=== PATIENT | male | born 1955 | race Caucasian/White ===

== ENCOUNTER 2023-07-14 16:47 | Inpatient (IN) | payer OTHER, SELFPAY ==
[2023-07-14] VITALS (27 sets, daily range): BP systolic 86–132; BP diastolic 50–108; PULSE 78; BMI 29.8
--- NOTE | 2023-07-14 15:41 | ED.GENMED ---
History of Present Illness
General
Chief Complaint: Chest Pain
Source: patient
Exam Limitations: none
Time Seen by Provider: 07/14/23 15:30
Nursing documentation reviewed up to this point in time: agreed with
Travel History
Have you had any contact with someone who has COVID-19?: No
Do you have any symptoms of coronavirus? Fever > 100 degrees, chills, cough, shortness of breath, sore throat, loss of taste or smell, muscle aches, or headache?: No
History of Present Illness
History of Present Illness:
Patient with history of coronary disease, presents to ED secondary to worsening intermittent chest pain over the past 1 month. Patient was evaluated by his psychiatric aide yesterday and an outpatient cardiac catheterization has been scheduled for July
. Today, chest pain was more frequent, although improved when taking sublingual nitroglycerin. Patient reports having taken for tablets today. Chest pain described as pressure, right-sided, nonradiating, without any alleviating or exacerbating
factors. Denies trauma. Denies fever or chills. Denies recent travel or surgery. Denies leg pain or swelling. Denies back pain. Patient reports having had cardiac catheterization 6 years ago which revealed 40% blockage in his LAD.
Review of Systems
Review of Systems
Allergies reviewed?: Yes
All Other Systems: ROS reviewed and negative except as documented in HPI and ROS
Constitutional: Reports no symptoms
EENT: Reports no symptoms
Respiratory: Reports no symptoms
Cardiac: Reports chest pain
ABD/GI: Reports no symptoms
: Reports no symptoms
Musculoskeletal: Reports no symptoms
Skin: Reports no symptoms
Neurological: Reports no symptoms
Phy Exam
Physical Exam
Physical Exam:
Physical Exam
General: mild distress, not acutely ill. afebrile
Head: nc/at. eomi
Neck: supple. no meningeal signs.
Heart: s1/s2 regular rate and rhythm, no murmur. equal radial pulses.
Lungs: no acute respiratory distress. clear bilaterally
Abdomen: normal bowel sounds. not tender.
Neuro: alert and oriented. no focal neurological deficits
Skin: no rash
Psychiatric: well kept. interactive and cooperative
Extremities: no edema. no calf tenderness.
Scores
Heart Score for Chest Pain Patients
STEMI patient?: No
History: Highly Suspicious
ECG: Significant ST-Depression
Age: >/= 65 years
Risk Factors: >/= 3 Risk Factors or History of CAD
Troponin: >1 - <3 x Normal Limit
Heart Score for Chest Pain Patients: 9
Heart Score Risk: 72.7 % MACE over next 6 weeks
Course
Orders/Labs/Results
Orders:
Orders
07/14/23
Electrocardiogram (*1) Stat
Reason for Study: Chest Pain
Comment: DONE NO ORDER ENTERED
07/14/23 Lunch
NPO
Allow oral meds: Yes
Allow clear liquids: No
07/14/23 15:10
EKG [Electrocardiogram (*1)] Urgent
Reason for Study: Chest Pain
EKG- Treatment ONCE
07/14/23 15:32
CR Chest Portable - 1 View Urgent
Comment:
Reason For Exam: chest pain
Reason Study Needs to be Portable: Patient Unstable
07/14/23 15:36
Nitroglycerin 100 mg/250 ml [Nitroglycerin Premix] 100 mg in 250 ml .ROUTE .STK-MED
Nitroglycerin Sublingual [Nitrostat (Sublingual)] 0.4 mg .ROUTE .STK-MED ONE
07/14/23 15:41
Complete Blood Count/No Diff Urgent
Comprehensive Metabolic Panel Urgent
Magnesium Urgent
Troponin I Urgent
07/14/23 15:43
Nitroglycerin Sublingual [Nitrostat (Sublingual)] 0.4 mg SL NOW STA
07/14/23 15:45
Nitroglycerin 100 mg/250 ml [Nitroglycerin Premix] 100 mg in 250 ml IV PER PROTOCOL
Initial dose in mcg/min, then titrate:: 25
Titrate to keep:: Chest Pain Free
Titrate by mcg/min:: 5 mcg/min, may increase by 10 mcg/min if dose > 20 mcg/min
Frequency of titrations (minutes):: every 3-5 minutes
Maximum dose in mcg/min:: 200
Begin to taper infusion when:: Remained at goal for 2hrs
Taper by mcg/min:: 5 mcg/min
Frequency of taper (minutes) if patient maintains goal:: 30
Taper to off?: Yes
If infusion off & no longer maintaining goal:: Contact Provider
07/14/23 15:48
Aspirin Chewable [Low Strength Aspirin] 324 mg .ROUTE .STK-MED ONE
Heparin 5,000 units .ROUTE .STK-MED ONE
Heparin 20340 Units/250 ml 25,000 units in 250 ml .ROUTE .STK-MED
07/14/23 15:50
Aspirin Chewable [Low Strength Aspirin] 324 mg PO NOW STA
07/14/23 15:52
Heparin 4,000 units IV NOW STA
07/14/23 15:55
PT/INR [Prothrombin Time] Urgent
07/14/23 16:00
Admit/Transfer Patient As Directed
Co-Sign Provider:
Level of Care: Inpatient admission
Assign to:: IVU
Physician / Group: Dr. Coronel
Diagnosis: Acute coronary syndrome
Reason for Hospitalization: Acute coronary syndrome
Expected length of stay greater than two midnights?: Yes
ELOS- Estimated Length of Stay in days: 3
I certify the patient meets the requirements for IP care: Yes
ECG [Electrocardiogram (*1)] Urgent
Reason for Study: Chest Pain
Comment: POSTERIOR ECG
07/14/23 16:07
Fentanyl Citrate/Pf [Sublimaze] 100 mcg .ROUTE .STK-MED ONE
Heparin 10,000 units .ROUTE .STK-MED ONE
Midazolam HCl [Versed] 2 mg .ROUTE .STK-MED ONE
07/14/23 16:16
EKG- Treatment ONCE
07/14/23 16:28
Furosemide [Lasix] 40 mg .ROUTE .STK-MED ONE
07/14/23 16:47
Transfer Patient As Directed
Transfer to: CVICU
Higginbotham Catheter [Catheter- Indwelling] As Directed
Reason for insertion: I&O's Critical Care
Assess insertion reason daily.Remove if no longer applicable: Yes
07/14/23 17:10
Dextrose 50%-Water [Dextrose 50% Syringe] 12.5 grams IV [id number] PRN
Glucagon [GlucaGen] 1 mg IM PRN PRN
Insulin Aspart Corrective Low [Novolog Flexpen-Low Resistance] See Protocol SC AC
Nitroglycerin Sublingual [Nitrostat (Sublingual)] 0.4 mg SL [id number] PRN
07/14/23 17:10
Echo 2D MMode Color/Doppler Routine
Reason for Study: chest pain
Case Management Consult ONCE
Case Management Consult: Discharge Planning
Bedside Glucose Monitoring As Directed
Frequency: AC&HS
Additional Instructions:: Change to q6h if pt on TPN, tube feeding or not eating
INT (Intravenous Needle Therapy) As Directed
Comment: maintain peripheral IV access
Intake/ Output As Directed
Frequency: Per unit guidelines
Vital Signs As Directed
Frequency: q4h
Weight As Directed
Frequency: Once
07/14/23 17:20
Glycohemoglobin (HgbA1c) Routine
Troponin I Q6H
Comment: at admit & Q3H for 3 total including ED draws, obtain ECG with each level
07/14/23 20:00
Ranolazine Extended Release [Ranexa Extended Release] 1,000 mg PO BID
07/14/23 22:00
Electrocardiogram (*1) Q6H
Reason for Study: Chest Pain
Comment: at admission and Q3H for total of 3, to be done with each troponin
07/15/23 04:00
Electrocardiogram (*1) Q6H
Reason for Study: Chest Pain
Comment: at admission and Q3H for total of 3, to be done with each troponin
Troponin I Q6H
Comment: at admit & Q3H for 3 total including ED draws, obtain ECG with each level
07/15/23 06:00
Cardiovascular Evaluation IN AM
Complete Blood Count/No Diff IN AM
Comprehensive Metabolic Panel IN AM
07/15/23 08:00
Amlodipine [Norvasc] 10 mg PO DAILY
Aspirin Chewable [Low Strength Aspirin] 81 mg PO DAILY
Lisinopril [Zestril] 20 mg PO DAILY
Tamsulosin [Flomax] 0.4 mg PO DAILY
Abnormal Lab Results
07/14/23
15:41
WBC 11.6 H 10^3/uL
(4.8-10.8)
RBC 4.56 L 10^6/uL
(4.70-6.10)
Hct 38.6 L %
(39.0-52.0)
Sodium 134 L mmol/L
(135-145)
Glucose 236 H mg/dl
(70-99)
Troponin I 0.565 H* ng/ml
07/14/23 15:41
07/14/23 15:41
Vital Signs
Initial and Last Documented VS:
Initial Vital Signs
Temp Pulse Resp BP Pulse Ox
98.0 F 85 18 90/61 98
07/14/23 15:23 07/14/23 15:23 07/14/23 15:23 07/14/23 15:23 07/14/23 15:23
Last Documented Vital Signs
Temp Pulse Resp BP Pulse Ox
98.2 F 79 17 109/50 98
07/14/23 20:00 07/14/23 20:00 07/14/23 20:00 07/14/23 20:00 07/14/23 20:00
MDM/Problems Addressed
MDM/Problems Addressed:
History and exam consistent with unstable angina, along with concerning ST depression inferolaterally.
Outpatient cardiology office records obtained via fax. Scheduled for an outpatient cardiac catheterization in July.
Pt given NTG SL, with improvement in symptoms. Will start nitroglycern gtt.
Pt evaluated in ED by (cardiology) - will proceed to cardiac cath. Agrees with plan to administer aspirin/heparin bolus.
Critical care statement: A total of 30 minutes of critical care time was provided for this patient. This includes management of unstable vital signs, evaluation of the patient at bedside, reviewing the patient's pertinent medical records, discussion
with consultants, review of old EKGs and review of pertinent medical records. This time with separate from time utilized to perform the aforementioned documented procedures
*EKG
Interpreted by ED Provider?: Yes
EKG Intrepretation Date: 07/14/23
Heart Rate: 83
Rate: normal
[place]: normal axis
Ischemia: ST depression
*Critical Care Note
Total Time (30-74mins, 75-104mins- exclusive of procedures): 30 min
ED Attending Note
-
Portions of this chart may have been created with voice recognition software.� Occasional wrong word or��sound alike� substitutions may have occurred due to the inherent limitations of voice recognition software.
Discharge Plan
Departure
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
Date of Disposition: 07/14/23
Time of Disposition: 16:00
Admit to: laboratory apparatus glass blower
Presentation/result/management discussed w/ accepting MD/DO:
Discharge Problem:
Chest pain, Abnormal ECG
Interventions
Interventions:
*Nursing Disposition Last Done: 07/14/23 16:25
Discharge Date and Time
Discharge Date/Time: 07/14/23 16:26
[2023-07-14] MEDS: NITROSTAT (SUBLINGUAL) 0.400000000000000022 MG SL (15:43)
[2023-07-14] MEDS: NITROGLYCERIN PREMIX 250 IV (15:46)
[2023-07-14] MEDS: LOW STRENGTH ASPIRIN 324 MG PO (15:50)
[2023-07-14] MEDS: HEPARIN 4000 UNITS IV (15:52)
--- NOTE | 2023-07-14 16:00 | HPS.HSE ---
Family Physician
-
Family Physician:
Dr. Matos
Primary project coordinator rn Dr. Davis
Chief Complaint
-
Chest pain
History of Present Illness
67-year-old gentleman with a past medical history of diffuse CAD without any prior stenting or bypass, hypertension, hyperlipidemia and diabetes on semaglutide who presents for evaluation of chest pain. Patient reports, over the last month or 2, he
has had increasing need for nitroglycerin. He reports that at first it was with exertion but in the last several days it has been occurred with less and less exertion and today occurred at rest while at work. It is mid substernal to right-sided
pressure it does not radiate. It is relieved with nitro. He chronically takes Ranexa, amlodipine and lisinopril and saw his primary project coordinator rn yesterday who increased his metoprolol to 125 mg daily and recommended cardiac catheterization.
Currently, he is still at a 2 out of 3 out of 10 pain. He has received 5 nitroglycerin 3 on his own accord. He is on a nitro drip at 25 mics per minute. EKG shows sinus rhythm with a rightward axis, diffuse ST depressions 1 to 2 mm [address] AV are ST
elevation of 2 mm.
Medical History
Past Medical History
Past Medical History: Reports CAD (Question nonobstructive but treated with Ranexa and as needed nitroglycerin), HTN, Hypercholesterolemia and NIDDM
Past Surgical History: Reports Other (He just had a prostate biopsy a week and a half ago)
Social History
Tobacco: Former Smoker (Greater than 10 years ago)
Alcohol: Occasional (Very occasionally like less than a couple of times a year.)
Family History
Family History: CAD (No premature CAD)
Allergies / Home Medications
Allergies reflects when Allergies were last updated in [employer].
Home Medications with original date entered in [employer]
Allergy/Medication List:
Penicillin hives codeine nausea and vomiting
Review of Systems
-
A 12 point ROS was completed and negative except as noted: Yes
Physical Exam
Vital Signs
Vital Signs
Temp Pulse Resp BP Pulse Ox
98.0 F 85 18 90/61 98
07/14/23 15:23 07/14/23 15:23 07/14/23 15:23 07/14/23 15:23 07/14/23 15:23
Physical Exam
General: Well Developed, Well Nourished and No Apparent Distress
HEENT: NormoCephalic and Atraumatic
Respiratory: Clear, Wheezes (none), Rales (none) and Rhonchi (none)
Cardiac: S1/S2 and Regular Rhythm
GI: Soft, Non Tender and Non Distended
Musculoskeletal: No Clubbing, No Cyanosis and No Edema
Neuro: AO x 3
Laboratory Results
-
Still pending except for CBC white count one 11.6, platelets 222 hemoglobin 13.7
Data Reviewed
-
Medical Tests (Nuc Med, Echo, EKG etc): Other (EKG as above, outpatient EKG yesterday showed normal sinus rhythm with mild ST changes anterolaterally, suspicious for ischemia.)
Impression/Plan
-
IMPRESSION:
67-year-old with diffuse CAD, hypertension, hyperlipidemia, diabetes and morbid obesity presents for evaluation of chest pain consistent with ACS.
Will proceed to cardiac catheterization urgently, received 325 of aspirin at the bedside, received 4000 units of heparin.
I spoke to Dr. Kasper gravity flow irrigator who will proceed to cardiac catheterization now.
Will continue OMT post catheterization as indicated.
-
For his diabetes, will check sliding scales and provide coverage, will consult medicine tomorrow.
-
BPH, continue alpha-joe
This is a high risk situation requiring immediate transfer to cardiac catheterization laboratory.
[2023-07-14 16:02] LABS: Hematocrit 38.6 % (39.0-52.0); Hemoglobin 13.7 g/dL (13.0-18.0); Mean Corp Hgb Conc. 35.5 g/dL (33.0-37.0); Mean Corpuscular Volume 84.6 fL (80.0-94.0); Mean Platelet Volume 8.9 fL (7.4-10.4); Platelet Count 222 10^3/uL (130-400); Red Blood Cell Count 4.56 10^6/uL (4.70-6.10); Red Cell Dist. Width 12.7 % (11.5-14.5); White Blood Cell Count 11.6 10^3/uL (4.8-10.8)
--- NOTE | 2023-07-14 16:05 | ITS.CL.CATH ---
Brick Extruder Operator - Catheterization
Cardiac Catheterization
Procedure Report:
CARDIAC CATHETERIZATION REPORT
Date of Procedure: 07/14/2023
Referring: Agatha Coronel MD
Indication: ACS
HEMODYNAMIC DATA
AO: 98/64
LV: 110/40
There is a suspected gradient across aortic valve approximately 10-15 mmHg. This will need to be verified by echo
LEFT VENTRICULOGRAPHY: Left ventricular wall motion is reasonably intact with visually estimated EF 50-55%
CORONARY ANGIOGRAPHY
Dominance: Right
Left Main: 20% mid stenosis
LAD: The LAD has mild proximal luminal disease and then severe diffuse multisegment disease involving the entire mid and distal LAD. There are focal areas of greater than 90% stenosis throughout the mid and distal LAD. The first diagonal branch is
subtotally occluded at its origin. This appears to be a very small diffusely diseased vessel. The larger second diagonal branch has 80% ostial, 80% proximal, and 80% mid stenoses.
Circumflex: The circumflex is occluded just distal to its origin. This appears to be a chronic total occlusion. There is faint bridging collateral filling of a diffusely diseased medium caliber OM1. I do not see collateral filling of more distal
obtuse marginal branches. Notably in 2017 his angiogram showed an occluded small OM 2 and a 95% stenosis in a small OM 3
RCA: Dominant vessel with severe calcification. There is 50% ostial/proximal stenosis, 50% mid stenosis, severely calcific 80% distal RCA stenosis proximal to the takeoff of the RPDA. The RPDA is proximally occluded (new since 2017). The RCA
terminates with a moderate-sized right posterolateral branch which has mild luminal disease.
Closure Device: None-the procedure was performed via the right radial artery.
Radiation (mGy): 628
DAP (cm2.Gy): 64.5
Fluoroscopy time: 5.1 minutes
CONCLUSIONS
1: ACS presentation with diffuse lateral ischemic changes on ECG
2: Acute pulmonary edema. LVEDP is 40 and the patient required 100% O2 via nonrebreather facemask to get O2 saturation greater than 92%. Furosemide 40 mg was given early during the catheterization procedure once the LVEDP was measured
3. Reasonably normal left ventricular wall motion with estimated LVEF 50-55%
4. Possible aortic stenosis with pullback gradient of 10-15 mmHg can you
5. Critical triple-vessel CAD as described-I do not see any appropriate target for interventional therapy. We will ask CT surgery to review the angiogram although I do not see acceptable bypass targets outside of the distal right posterolateral
branch and the distal aspect of second diagonal branch. Of note, he was seen by Dr. Grey of CT surgery at [facility] in 2017 and felt at that time not to be an acceptable candidate for CABG
6. At the conclusion of the catheterization procedure, he will be transferred to the CVICU. IC nitroglycerin was started at 60 mcg/min. Heparin will be resumed after the R band is off. We will continue metoprolol and use 25 mg p.o. every 6 hours
at this time. Furosemide 40 mg IV twice daily will be ordered. We will obtain serial cardiac isoenzymes and EKGs. His prognosis at present is guarded to poor and coronary revascularization is likely not an option for this man. I opted not to
place an IABP as he had blood pressure 110/80 with O2 sat 95% on 100% nonrebreather facemask and I felt having him upright would be greatly important to treat his pulmonary edema. With no clear option for surgical intervention and no option for
percutaneous intervention, it is unclear that a balloon pump would be of any help at this time.
Copy to: Nikos Maya MD
Evert Kasper MD, [facility], [facility]
[2023-07-14 16:11] LABS: INR 1.08; PT 13.9 Sec (11.4-14.6)
[2023-07-14 16:17] LABS: ALT (SGPT) 25 U/L (0-50); AST (SGOT) 26 U/L (17-59); Albumin 4.5 g/dl (3.5-5.0); Alkaline Phosphatase 44 U/L (38-126); Blood Urea Nitrogen 18 mg/dl (9-20); Carbon Dioxide 22 mmol/L (22-30); Chloride 99 mmol/L (98-107); Glucose 236 mg/dl (70-99); Magnesium 1.9 mg/dl (1.6-2.3); Potassium 5.1 mmol/L (3.5-5.1); Sodium 134 mmol/L (135-145); Total Bilirubin 0.8 mg/dl (0.2-1.3); Total Protein 7.3 g/dl (6.3-8.2); eGFR > 60.00
[2023-07-14 16:33] LABS: Troponin I 0.565 ng/ml
[2023-07-14 17:27] LABS: Hematocrit 36.4 % (39.0-52.0); Hemoglobin 12.5 g/dL (13.0-18.0); Mean Corp Hgb Conc. 34.3 g/dL (33.0-37.0); Mean Corpuscular Hgb 29.6 pg (27.0-31.0); Mean Corpuscular Volume 86.1 fL (80.0-94.0); Mean Platelet Volume 9.2 fL (7.4-10.4); Platelet Count 194 10^3/uL (130-400); Red Blood Cell Count 4.23 10^6/uL (4.70-6.10); Red Cell Dist. Width 12.5 % (11.5-14.5); White Blood Cell Count 10.9 10^3/uL (4.8-10.8)
[2023-07-14 17:40] LABS: APTT 130.5 Sec (23.4-35.0)
--- NOTE | 2023-07-14 17:48 | CONSULT.CT ---
Consultation
-
Date/Time Consultation Requested: 07/13
Date/Time Consultation Performed: 07/13
Requesting Provider: Dr Kasper
Performing Provider: Daphne GALLAGHER for Dr Carrillo
Reason for Consultation: CABG evaluation
Patient History
Physicians
Family Physician: Dr. Jabier Matos
Outpatient Awning Installer: Dr. Nikos Maya
Inpatient Awning Installer: Dr. Kasper
History of Present Illness
67-year-old [id number] male with a significant past medical history of hypertension, hyperlipidemia, diabetes and diffuse CAD (recommended medical therapy in 2017), was admitted 07/13 via the emergency room with increasing
frequency of midsternal chest pressure. Patient took Nitroglycerin without relief. Initial Troponin was 0.5. Patient was evaluated by Dr. Nikos Maya (primary geospatial specialist) yesterday who increased Toprol XL to 125 mg daily and recommended
elective cardiac catheterization. Cath reported triple vessel coronary disease. Azar thomas
Cardiac Catheterization (R radial by Dr. Kasper 07/13):
LV gram: LVEF 50-55%
Left Main: 20% mid stenosis
LAD: The LAD has mild proximal luminal disease and then severe diffuse multisegment disease involving the entire mid and distal LAD. There are focal areas of greater than 90% stenosis throughout the mid and distal LAD. The first diagonal branch is
subtotally occluded at its origin. This appears to be a very small diffusely diseased vessel. The larger second diagonal branch has 80% ostial, 80% proximal, and 80% mid stenoses.
Circumflex: The circumflex is occluded just distal to its origin. This appears to be a chronic total occlusion. There is faint bridging collateral filling of a diffusely diseased medium caliber OM1. I do not see collateral filling of more distal
obtuse marginal branches. Notably in 2017 his angiogram showed an occluded small OM 2 and a 95% stenosis in a small OM 3
RCA: Dominant vessel with severe calcification. There is 50% ostial/proximal stenosis, 50% mid stenosis, severely calcific 80% distal RCA stenosis proximal to the takeoff of the RPDA. The RPDA is proximally occluded (new since 2017). The RCA
terminates with a moderate-sized right posterolateral branch which has mild luminal disease.
Past Medical History
Past Medical History: BPH, CAD (known CAD from 2017), Cancer (prostate w/surveillance and biopsy 2 weeks ago), HTN, Hypercholesterolemia, NIDDM and Other (frequent falls d/t balance issues from concussion from fall 18 months ago)
Past Surgical History
Past Surgical History: Other (prostate biopsy 2 weeks prior to admisson)
Family History
Mother: at Age
Father: at Age
Social History
Alcohol: None
Drug: None
Tobacco: Former Smoker (quit 20 years ago (15 pk/yr hx))
Personal: Single
Living: Alone
Employment: Retired
Allergies
Allergy/AdvReac Type Severity Reaction Status Date / Time
bee venom protein (honey bee) Allergy Anaphylaxis Verified 07/14/23 15:25
codeine Allergy Unknown Verified 07/14/23 15:25
Penicillins Allergy Unknown Verified 07/14/23 15:25
Home Medications
�Medication �Instructions �Recorded �Confirmed �Type
alfuzosin 10 mg tablet,extended 10 mg PO DAILY Urinary Issue 07/14/23 07/14/23 History
release 24 hr
amlodipine 10 mg tablet (Norvasc) 10 mg PO DAILY Blood Pressure 07/14/23 07/14/23 History
aspirin 81 mg tablet,delayed 81 mg PO DAILY Blood Clot 07/14/23 07/14/23 History
release Prevention/Tx
lisinopril 20 mg tablet 20 mg PO DAILY Blood Pressure 07/14/23 07/14/23 History
metformin 500 mg tablet 1,000 mg PO BID Diabetes 07/14/23 07/14/23 History
metoprolol succinate 25 mg 125 mg PO DAILY Blood Pressure 07/14/23 07/14/23 History
tablet,extended release 24 hr
(Toprol XL)
ranolazine 500 mg tablet,extended 1,000 mg PO BID Heart 07/14/23 07/14/23 History
release,12 hr Disease/Condition
rosuvastatin 20 mg tablet 20 mg PO DAILY High Cholesterol 07/14/23 07/14/23 History
semaglutide 1 mg/dose (4 mg/3 mL) 1 mg SC SA Diabetes 07/14/23 07/14/23 History
subcutaneous pen injector (Ozempic)
semaglutide 7 mg tablet (Rybelsus) 7 mg PO BID Diabetes 07/14/23 07/14/23 History
Review of Systems
-
History Source: Patient
General: Reports Weight Loss (intentional 35 pounds over 2 years d/t Rybelsus>Ozempic)
Respiratory: Reports No Symptoms
Cardiac: Reports Chest Pain (on admission) and CAD
Abdomen/GI: Reports No Symptoms
: Reports No Symptoms
Musculoskeletal: Reports No Symptoms
Skin: Reports No Symptoms
Neurological: Reports No Symptoms
Vascular: Reports No Symptoms
Physical Exam
Vital Signs
Temp 98.0 F 07/14/23 15:23
Temp route: Oral 07/14/23 15:23
Pulse 85 07/14/23 15:23
Resp Rate 18 07/14/23 15:23
Blood pressure 90/61 07/14/23 15:23
Blood pressure extremity used: Left upper arm 07/14/23 15:23
Position: Sitting 07/14/23 15:23
SaO2 91 07/14/23 17:17
Nasal Cannula flow liters per minute 15 07/14/23 17:17
Oxygen Mode of Delivery Midflow Nasal Cannula 07/14/23 17:17
Acceptable pain level during hospitalization? 0 07/14/23 15:23
Can the patient verbally communicate their pain? Yes 07/14/23 17:23
Pain scale ratin 07/14/23 17:23
Actual Weight 105.233 kg 07/14/23 17:21
Body Mass Index (BMI) 29.8 07/14/23 17:21
Labs
07/14/23 17:20
07/14/23 15:41
PT 13.9 Sec (11.4-14.6) 07/14/23 15:55
APTT 130.5 Sec (23.4-35.0) H 07/14/23 17:20
Troponin I 0.565 ng/ml H* 07/14/23 15:41
Exam
General: Well Developed, Well Nourished and Comfortable
HEENT: Normocephalic, Anicteric, Moist Mucous Membranes and PERRLA
Neck: Trachea Midline
Respiratory: Wheezes (faint expiratory wheeze)
Cardiac: S1/S2 and Regular Rhythm
GI: Soft, Non Tender, Non Distended and Normal Bowel Sounds
Rectal: Deferred by Provider
Skin: Warm and Dry
Neuro: AO x 3, No Motor Deficits and Nonfocal/Grossly Intact
Extremities: Lower Level Edema (+2 B/L tibial)
Lymph: No Lymphadenopathy
Psych: Calm
Assessment / Plan
-
67-year-old male with triple-vessel coronary disease and preserved ejection fraction
- Case d/w Dr. Carrillo who reviewed images and will speak with patient tomorrow
Data Reviewed
-
EKG: Report Reviewed by me and Discussed with Physician
It Quality Analyst: Report Reviewed by me and Discussed with Physician
Radiology: Report Reviewed by me and Discussed with Physician
Labs: Labs Reviewed by me and Discussed with Physician
[2023-07-14 17:57] LABS: Troponin I 0.663 ng/ml
--- NOTE | 2023-07-14 18:03 | PTCARENOTE ---
Received pt from floating labor gang supervisor via bed; NSR on monitor and VSS; Nitro infusing see flow sheet for details; Lungs diminished with expiatory wheezing; positive bowel sounds; Higginbotham catheter draining clear yellow urine; palpable pulses throughout; +2 lower
extremity edema; TR band on Right wrist see flow sheet for details; see nursing documentation for further details.
[2023-07-14 19:03] LABS: Glucose - Point of Care 246 mg/dl (70-99)
[2023-07-14] MEDS: CRESTOR 40 MG PO (20:08)
[2023-07-14] MEDS: RANEXA EXTENDED RELEASE PO ×2 (20:08→20:13)
[2023-07-14] MEDS: NOVOLOG FLEXPEN-LOW RESISTANCE 2 UNITS SC (20:09)
[2023-07-14 20:48] LABS: APTT 30.7 Sec (23.4-35.0)
[2023-07-14] MEDS: HEPARIN 25000 UNITS/250 ML IV (21:00)
--- NOTE | 2023-07-14 21:15 | PTCARENOTE ---
Patient received resting in bed talking with visitor. Patient A+A+Ox3. No neurological deficits noted. No c/o headache, dizziness or lightheadedness. Midflow oxygen - 12L Oxygen. SaO2 98%. No s/s of respiratory distress. No c/o SOB. Sinus
Rhythm. Heart rate 70's. Blood pressure 107/59 (73). Patient continues on Nitro gtt - No c/o chest pain. IV Heparin gtt started per protocol/pharmacy - 1000 units/hr (10 ml/hr). Right wrist TR Band removed per protocol - No hematoma, bleeding
or oozing - Positive radial pulse - Positive circulation, sensation and mobility to right upper extremity. Bilateral lower extremities with edema and slight brownish discoloration. Normoactive bowel sounds. No BM. No c/o nausea. No vomiting.
Higginbotham catheter - Temperature sensing - Jade urine - Output 50 ml/hr. Assessment as documented.
[2023-07-14 23:15] LABS: Glucose - Point of Care 185 mg/dl (70-99)
[2023-07-14] MEDS: TYLENOL 650 MG PO (23:22)
[2023-07-15] VITALS (17 sets, daily range): BP systolic 93–126; BP diastolic 53–74; BMI 31.1
[2023-07-15] MEDS: LOPRESSOR 12.5 MG PO ×4 (00:36→17:41)
--- NOTE | 2023-07-15 01:00 | PTCARENOTE ---
Patient dozing intermittently. No c/o chest pain, pressure or discomfort. Nitro gtt. IV Heparin gtt. Midflow Oxygen - 6L Oxygen. SaO2 96%. Lopressor 12.5 mg PO given per PA orders. Assessment as documented.
--- NOTE | 2023-07-15 02:50 | W.PN.UPDATE ---
Update Note
Progress Note Update
-pt c/o urinary burning with Higginbotham, hx of recent prostate biopsy with some bleeding at home. Currently, on ASA and iv Heparin for NSTEMI with tea colored urine. Started Pyridium for burning, will check UA. Kept Higginbotham for now in case bleeding
increases once Heparin is therapeutic with risk of forming clots and flow occlusion. Can certainly re-evaluate later today for possible d/c of Higginbotham if no significant bleed. Continue Flomax
-held Norvasc for hypotension. Continue BB
[2023-07-15] MEDS: Pyridium 200 MG PO (03:16)
[2023-07-15 04:24] LABS: Hematocrit 33.7 % (39.0-52.0); Hemoglobin 11.7 g/dL (13.0-18.0); Mean Corp Hgb Conc. 34.7 g/dL (33.0-37.0); Mean Corpuscular Hgb 30.1 pg (27.0-31.0); Mean Corpuscular Volume 86.6 fL (80.0-94.0); Mean Platelet Volume 9.2 fL (7.4-10.4); Platelet Count 183 10^3/uL (130-400); Red Blood Cell Count 3.89 10^6/uL (4.70-6.10); Red Cell Dist. Width 12.6 % (11.5-14.5)
[2023-07-15 04:27] LABS: Urine Albumin Negative (Neg - Trace); Urine Bilirubin Negative (Negative); Urine Character Clear (Clear); Urine Color Yellow; Urine Glucose Negative (Negative); Urine Ketone Negative (Negative); Urine Leukocyte Trace (Negative); Urine Nitrite Negative (Negative); Urine Occult Blood 4+ (Negative); Urine Urobilinogen Negative (Neg - 1+)
[2023-07-15 04:36] LABS: APTT 38.8 Sec (23.4-35.0)
--- NOTE | 2023-07-15 04:45 | PTCARENOTE ---
Patient with c/o pain, discomfort and slight burning related to Higginbotham catheter. PA spoke with patient. Pyridium 200mg PO order and given without difficulty - Positive relief provided. UA collected and sent. AM lab work collected and sent. EKG
completed. Patient given CHG bath and linens changed. O2 at 4L via NC. SaO2 97%. No c/o SOB. No c/o chest pain, pressure or discomfort. Assessment/Interventions as documented.
[2023-07-15 04:50] LABS: ALT (SGPT) 22 U/L (0-50); AST (SGOT) 25 U/L (17-59); Albumin 3.9 g/dl (3.5-5.0); Alkaline Phosphatase 41 U/L (38-126); Blood Urea Nitrogen 19 mg/dl (9-20); Calcium 9.2 mg/dl (8.4-10.2); Carbon Dioxide 25 mmol/L (22-30); Chloride 103 mmol/L (98-107); Estimated Creatinine Clearance 74 ml/min; Glucose 164 mg/dl (70-99); HDL Cholesterol 45 mg/dl; LDL Cholesterol, Calculated 33 mg/dl; Potassium 4.5 mmol/L (3.5-5.1); Sodium 136 mmol/L (135-145); Total Bilirubin 0.8 mg/dl (0.2-1.3); Total Cholesterol 107 mg/dl (50-199); Total Protein 6.5 g/dl (6.3-8.2); Triglyceride 147 mg/dl (10-149); Very Low Density Lipoprotein 29 mg/dl (0-30); eGFR > 60.00
[2023-07-15 05:07] LABS: Urine Bacteria Few (Negative); Urine Red Blood Cell 30-40 /HPF (0-2)
[2023-07-15 08:02] LABS: Glucose - Point of Care 233 mg/dl (70-99)
--- NOTE | 2023-07-15 08:42 | PTCARENOTE ---
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 NSR via cm, SaO2 @ 97% on 3lnc. Heparin and NTG infusing peripherally - see work list interventions for infusion rates and titrations. R wrist
procedural site stable, cdi, no ecchymosis or hematoma noted, pulse palp. Assisted oob to bathroom, settled to chair. See work list for full assessment and interventions performed.
[2023-07-15] MEDS: RANEXA EXTENDED RELEASE 1000 MG PO ×2 (09:26→19:21)
[2023-07-15] MEDS: LOW STRENGTH ASPIRIN 81 MG PO (09:26)
[2023-07-15] MEDS: ZESTRIL 20 MG PO (09:26)
[2023-07-15] MEDS: LASIX 40 MG IV ×2 (09:26→16:13)
[2023-07-15] MEDS: FLOMAX 0.400000000000000022 MG PO (09:26)
[2023-07-15] MEDS: NOVOLOG FLEXPEN-LOW RESISTANCE 2 UNITS SC ×3 (09:32→17:41)
[2023-07-15 09:43] LABS: Glucose - Point of Care 228 mg/dl (70-99)
--- NOTE | 2023-07-15 11:05 | W.PN.CD ---
Addendum entered and electronically signed by Shaneka Coronel MD 07/15/23 14:11:
I saw and examined the patient.
The CHRONIC DISEASE EPIDEMIOLOGIST's note was reviewed and I agree with the note.
Comment: He is feeling well. He has no complaints. He has a rrr, s1s2, lungs cta, trace edema b/l. Will move forward with med management of NSTEMI as no good option for revascularization. I will add clopidogrel. I will start IMDUR. Titrate off
of nitro gtt. Hep until tomorrow ~3pm if able. Titrate antianginals. Echo monday. Mayberry until tomorrow, give alpha joe. Will d/c tomorrow then doing voiding trial if needed will c/s urology.
Original Note:
Today's Communication / Plan
-
Con't IV heparin and nitro
wean O2
await CTS consult
consult hospitalists to assist with DM and prostate/urology management
Impression / Plan
-
67-year-old gentleman with a past medical history of diffuse CAD without any prior stenting or bypass, hypertension, hyperlipidemia and diabetes on semaglutide who presents for evaluation of chest pain. Patient reports, over the last month or 2, he
has had increasing need for nitroglycerin. He reports that at first it was with exertion but in the last several days it has been occurred with less and less exertion and 07/14/23 occurred at rest while at work. It is mid substernal to right-sided
pressure it does not radiate. It is relieved with nitro. He chronically takes Ranexa, amlodipine and lisinopril and saw his primary desk editor who increased his metoprolol to 125 mg daily and recommended cardiac catheterization.
-
NSTEMI:
-s/p [facility], await CTS consult
-medical therapy with intense monitoring with IV heparin and nitro currently.
-peak troponin 1.5
-echo pending
-meds as tolerated.
pulmonary edema:
-IV lasix
-wean O2 as able
DM:
-consult hospitalists to help with management
dysuria:
-prostate biopsy 2 weeks ago per pt report Dr See at [facility].
-dysuria yesterday and mayberry placed. Symptoms improving.
HTN:
-stable, low normal currently.
hyperlipidemia:
-LDL 33 on statin
Physical Exam
Vital Signs/Labs
Vital Signs
Temp Pulse Resp BP Pulse Ox
98.7 F 83 16 95/68 97
07/15/23 08:00 07/15/23 10:30 07/15/23 08:00 07/15/23 10:00 07/15/23 08:38
07/14/23 07/15/23 07/16/23
06:59 06:59 06:59
Actual Weight 109.8 kg
07/15/23 04:14
07/15/23 04:13
PT 13.9 Sec (11.4-14.6) 07/14/23 15:55
INR 1.08 07/14/23 15:55
APTT 38.8 Sec (23.4-35.0) H 07/15/23 04:13
Magnesium 1.9 mg/dl (1.6-2.3) 07/14/23 15:41
Triglycerides 147 mg/dl (10-149) 07/15/23 04:13
LDL Cholesterol, Calc 33 mg/dl 07/15/23 04:13
VLDL Cholesterol, Calc 29 mg/dl (0-30) 07/15/23 04:13
HDL Cholesterol 45 mg/dl 07/15/23 04:13
LAB Results
07/14/23 07/14/23 07/14/23
15:41 17:20 23:15
Troponin I 0.565 H* 0.663 H* 1.410 H* D
07/15/23
04:14
Troponin I 1.530 H*
Physical Exam
Constitutional: No acute distress
Cardiovascular: Rhythm & rate is regular and Pedal edema present (mild bilat LE edema)
Respiratory: Respiratory effort normal and Lungs clear to auscul.
Neuro/Psych: AO x 3
Data Reviewed
-
Date of Service: July 15, 2023
EKG: Tracing Personally Visualized and interpreted (NSR ST/T wave abn ) and Other (NSR )
Labs: Labs Reviewed by me and Labs Ordered by me
--- NOTE | 2023-07-15 11:07 | W.PN.UPDATE ---
Update Note
Progress Note Update
Pt seen and examined
cath reviewed
Discussed with Dr Kasper
Long discussion with pt regarding the findings of his cad
I dont think cabg is a possible option given his poor target vessels
Pt appears to understand this.
Consideration for TMR (not done here at ) if maximal medical therapy still fails to control angina
Will sign off
[2023-07-15 11:33] LABS: APTT 42.9 Sec (23.4-35.0)
--- NOTE | 2023-07-15 11:45 | PTCARENOTE ---
VS obtained, assessment stable. Patient remains oob in chair, denies pain, visitors at bedside.
[2023-07-15 12:11] LABS: Glycohemoglobin (HgbA1c) 8.8 % (4.0-5.6)
[2023-07-15 12:52] LABS: Glucose - Point of Care 247 mg/dl (70-99)
[2023-07-15] MEDS: IMDUR (EXTENDED RELEASE) 30 MG PO (13:27)
[2023-07-15] MEDS: TYLENOL 650 MG PO (14:08)
[2023-07-15] MEDS: Pyridium 100 MG PO (14:08)
[2023-07-15] MEDS: PLAVIX 600 MG PO (14:44)
[2023-07-15] MEDS: HEPARIN 25000 UNITS/250 ML IV (16:13)
--- NOTE | 2023-07-15 16:20 | PTCARENOTE ---
VS obtained, stable. Remains oob visiting w/family. Denies pain.
[2023-07-15 17:38] LABS: Glucose - Point of Care 210 mg/dl (70-99)
[2023-07-15] MEDS: CRESTOR 40 MG PO (17:40)
[2023-07-15 18:04] LABS: APTT 51.5 Sec (23.4-35.0)
[2023-07-15] MEDS: LIDOCAINE URO-JET 2% 1 SYRINGE TOPICAL (18:56)
--- NOTE | 2023-07-15 20:28 | PTCARENOTE ---
assumed care of patient @1900. received pt sitting in chair, AOX3. VSS on RA. chest pain free. heparin at 16. radial site good. SR on monitor. Lungs clear on room air. mayberry with orange urine. Resting comfortably in chair with call hearn within
reach.
[2023-07-15] MEDS: MELATONIN 5 MG PO (21:31)
[2023-07-15 21:45] LABS: Glucose - Point of Care 194 mg/dl (70-99)
[2023-07-16] VITALS (8 sets, daily range): BP systolic 115–168; BP diastolic 60–81; BMI 31.2
[2023-07-16] MEDS: LOPRESSOR 12.5 MG PO ×4 (00:18→17:41)
[2023-07-16 00:20] LABS: APTT 59.1 Sec (23.4-35.0)
--- NOTE | 2023-07-16 00:36 | PTCARENOTE ---
heparin increased to 1800 u/hr. no other change in assessment
[2023-07-16] MEDS: HEPARIN 25000 UNITS/250 ML IV (06:11)
[2023-07-16 06:46] LABS: APTT 96.3 Sec (23.4-35.0)
[2023-07-16 06:53] LABS: Hematocrit 35.2 % (39.0-52.0); Hemoglobin 12.5 g/dL (13.0-18.0); Mean Corp Hgb Conc. 35.5 g/dL (33.0-37.0); Mean Corpuscular Hgb 29.8 pg (27.0-31.0); Mean Corpuscular Volume 83.8 fL (80.0-94.0); Platelet Count 178 10^3/uL (130-400); Red Cell Dist. Width 12.6 % (11.5-14.5); White Blood Cell Count 8.8 10^3/uL (4.8-10.8)
[2023-07-16 07:43] LABS: Blood Urea Nitrogen 17 mg/dl (9-20); Carbon Dioxide 24 mmol/L (22-30); Chloride 106 mmol/L (98-107); Estimated Creatinine Clearance 102 ml/min; Glucose 162 mg/dl (70-99); Potassium 3.9 mmol/L (3.5-5.1); Sodium 139 mmol/L (135-145); eGFR > 60.00
--- NOTE | 2023-07-16 07:57 | W.PN.CD ---
Today's Communication / Plan
-
d/c mayberry
continue diuresis
echo tomorrow
ambulation
cardiac rehab referral
Impression / Plan
-
67-year-old gentleman with a past medical history of diffuse CAD without any prior stenting or bypass, hypertension, hyperlipidemia and diabetes on semaglutide who presents for evaluation of chest pain. Patient reports, over the last month or 2, he
has had increasing need for nitroglycerin. He reports that at first it was with exertion but in the last several days it has been occurred with less and less exertion and 07/14/23 occurred at rest while at work. It is mid substernal to right-sided
pressure it does not radiate. It is relieved with nitro. He chronically takes Ranexa, amlodipine and lisinopril and saw his primary emergency care tech who increased his metoprolol to 125 mg daily and recommended cardiac catheterization.
-
NSTEMI:
-Severe MVD, no options for intervention percutaneously or surgically
-optimizing Medical therapy--antianginal preference
-echo pending
-cardiac rehab referral
Acute HF pEF:
-LVEDP 40 @ 112kg
-continue diuresis
-IV lasix
-wean O2 as able
-hold off on sglt2 with active urinary issues
-will eventually consider MRA but optimizing antianginals first
DM:
-consult hospitalists to help with management
BPH with dysuria and obstructive symptoms:
-prostate biopsy 2 weeks ago per pt report Dr See at [facility].
-dysuria/obstructive symptoms and mayberry placed. Symptoms improving.
-d/c mayberry for voiding trial
HTN:
-stable, low normal currently.
hyperlipidemia:
-LDL 33 on statin
Data
[facility] 07/14/23:
HEMODYNAMIC DATA
AO: 98/64
LV: 110/40
There is a suspected gradient across aortic valve approximately 10-15 mmHg. This will need to be verified by echo
LEFT VENTRICULOGRAPHY: Left ventricular wall motion is reasonably intact with visually estimated EF 50-55%
CORONARY ANGIOGRAPHY
Dominance: Right
Left Main: 20% mid stenosis
LAD: The LAD has mild proximal luminal disease and then severe diffuse multisegment disease involving the entire mid and distal LAD. There are focal areas of greater than 90% stenosis throughout the mid and distal LAD. The first diagonal branch is
subtotally occluded at its origin. This appears to be a very small diffusely diseased vessel. The larger second diagonal branch has 80% ostial, 80% proximal, and 80% mid stenoses.
Circumflex: The circumflex is occluded just distal to its origin. This appears to be a chronic total occlusion. There is faint bridging collateral filling of a diffusely diseased medium caliber OM1. I do not see collateral filling of more distal
obtuse marginal branches. Notably in 2017 his angiogram showed an occluded small OM 2 and a 95% stenosis in a small OM 3
RCA: Dominant vessel with severe calcification. There is 50% ostial/proximal stenosis, 50% mid stenosis, severely calcific 80% distal RCA stenosis proximal to the takeoff of the RPDA. The RPDA is proximally occluded (new since 2017). The RCA
terminates with a moderate-sized right posterolateral branch which has mild luminal disease.
CONCLUSIONS
1: ACS presentation with diffuse lateral ischemic changes on ECG
2: Acute pulmonary edema. LVEDP is 40 and the patient required 100% O2 via nonrebreather facemask to get O2 saturation greater than 92%. Furosemide 40 mg was given early during the catheterization procedure once the LVEDP was measured
3. Reasonably normal left ventricular wall motion with estimated LVEF 50-55%
4. Possible aortic stenosis with pullback gradient of 10-15 mmHg can you
5. Critical triple-vessel CAD as described-I do not see any appropriate target for interventional therapy. We will ask CT surgery to review the angiogram although I do not see acceptable bypass targets outside of the distal right posterolateral
branch and the distal aspect of second diagonal branch. Of note, he was seen by Dr. Grey of CT surgery at [facility] in 2017 and felt at that time not to be an acceptable candidate for CABG
6. At the conclusion of the catheterization procedure, he will be transferred to the CVICU. IC nitroglycerin was started at 60 mcg/min. Heparin will be resumed after the R band is off. We will continue metoprolol and use 25 mg p.o. every 6 hours
at this time. Furosemide 40 mg IV twice daily will be ordered. We will obtain serial cardiac isoenzymes and EKGs. His prognosis at present is guarded to poor and coronary revascularization is likely not an option for this man. I opted not to
place an IABP as he had blood pressure 110/80 with O2 sat 95% on 100% nonrebreather facemask and I felt having him upright would be greatly important to treat his pulmonary edema. With no clear option for surgical intervention and no option for
percutaneous intervention, it is unclear that a balloon pump would be of any help at this time.
Physical Exam
Vital Signs/Labs
Vital Signs
Temp Pulse Resp BP Pulse Ox
97.7 F 66 16 138/75 94
07/16/23 03:57 07/16/23 07:00 07/16/23 03:57 07/16/23 06:10 07/16/23 03:57
07/15/23 07/16/23 07/17/23
06:59 06:59 06:59
Actual Weight 109.8 kg
07/16/23 06:22
07/16/23 06:22
PT 13.9 Sec (11.4-14.6) 07/14/23 15:55
INR 1.08 07/14/23 15:55
APTT 96.3 Sec (23.4-35.0) H 07/16/23 06:22
Magnesium 1.9 mg/dl (1.6-2.3) 07/14/23 15:41
Triglycerides 147 mg/dl (10-149) 07/15/23 04:13
LDL Cholesterol, Calc 33 mg/dl 07/15/23 04:13
VLDL Cholesterol, Calc 29 mg/dl (0-30) 07/15/23 04:13
HDL Cholesterol 45 mg/dl 07/15/23 04:13
LAB Results
07/14/23 07/14/23 07/14/23
15:41 17:20 23:15
Troponin I 0.565 H* 0.663 H* 1.410 H* D
07/15/23 07/15/23
04:14 11:09
Troponin I 1.530 H* 1.360 H*
Physical Exam
Constitutional: No acute distress
Cardiovascular: Rhythm & rate is regular, Systolic murmur absent, Diastolic murmur absent and Pedal edema present (trace b/l )
Respiratory: Respiratory effort normal, Lungs clear to auscul., Wheeze Absent, Crackles Absent and Rhonchi Absent
Neuro/Psych: AO x 3
Data Reviewed
-
Date of Service: July 16, 2023
Medical Decision Making: Review of Case with other Provider (RADHA Mays, kia/roberta mayberry, ambulated this afternoon after medications)
--- NOTE | 2023-07-16 08:30 | PTCARENOTE ---
Patient received from case resolution specialist resting comfortably in bed, drowsy but arousable and appropriate, denies pain. NSR via cm, SaO2 @ 95% on RA. Heparin gtt infusing as ordered, see work list intervention for infusion rates and titrations. R radial
site cdi, no ecchymosis or hematoma noted, pulse palp. Higginbotham catheter to gravity. Patient updated to plan of care for the day, in agreement. Dr. Coronel to unit, updated to status. See work list for full assessment and interventions performed.
[2023-07-16] MEDS: LASIX 40 MG IV ×2 (08:45→16:02)
[2023-07-16] MEDS: LOW STRENGTH ASPIRIN 81 MG PO (08:45)
[2023-07-16] MEDS: PLAVIX 75 MG PO (08:45)
[2023-07-16] MEDS: FLOMAX 0.400000000000000022 MG PO (08:45)
[2023-07-16] MEDS: ZESTRIL 20 MG PO (08:45)
[2023-07-16] MEDS: IMDUR (EXTENDED RELEASE) 30 MG PO (08:45)
[2023-07-16] MEDS: RANEXA EXTENDED RELEASE 1000 MG PO ×2 (08:45→21:53)
[2023-07-16 09:56] LABS: Glucose - Point of Care 241 mg/dl (70-99)
[2023-07-16] MEDS: NOVOLOG FLEXPEN-LOW RESISTANCE 2 UNITS SC (10:24)
[2023-07-16 12:20] LABS: APTT 82.5 Sec (23.4-35.0)
[2023-07-16] MEDS: NOVOLOG FLEXPEN-LOW RESISTANCE SC (15:43)
--- NOTE | 2023-07-16 16:10 | PTCARENOTE ---
VS obtained, assessment stable. Heparin gtt completed @ 1500. Patient remains pain free, ambulating ad reema.
[2023-07-16 17:14] LABS: Glucose - Point of Care 164 mg/dl (70-99)
[2023-07-16] MEDS: CRESTOR 40 MG PO (17:41)
[2023-07-16] MEDS: NOVOLOG FLEXPEN-LOW RESISTANCE 1 UNITS SC (17:41)
[2023-07-16 21:45] LABS: Glucose - Point of Care 181 mg/dl (70-99)
[2023-07-16] MEDS: MELATONIN 5 MG PO (21:57)
[2023-07-17] VITALS (7 sets, daily range): BP systolic 102–135; BP diastolic 59–96; BMI 31.1
[2023-07-17] MEDS: LOPRESSOR 12.5 MG PO ×2 (00:57→06:34)
[2023-07-17 05:42] LABS: Blood Urea Nitrogen 17 mg/dl (9-20); Calcium 9.5 mg/dl (8.4-10.2); Carbon Dioxide 26 mmol/L (22-30); Chloride 101 mmol/L (98-107); Estimated Creatinine Clearance 92 ml/min; Glucose 164 mg/dl (70-99); Potassium 4.1 mmol/L (3.5-5.1); Sodium 138 mmol/L (135-145); eGFR > 60.00
--- NOTE | 2023-07-17 07:35 | W.PN.CD ---
Today's Communication / Plan
-
Continue IV diuresis one more day
Increase imdur to 60qd
Change metoprolol to 50mg bid
Add Jardiance 10mg qd
Stop ozempic
ECHO today
ambulate
Cardiac rehab consult for outpt rehab at [facility]
Impression / Plan
-
67-year-old gentleman with a past medical history of diffuse CAD without any prior stenting or bypass, hypertension, hyperlipidemia and diabetes on semaglutide who presents for evaluation of chest pain. Patient reports, over the last month or 2, he
has had increasing need for nitroglycerin. He reports that at first it was with exertion but in the last several days it has been occurred with less and less exertion and 07/14/23 occurred at rest while at work. It is mid substernal to right-sided
pressure it does not radiate. It is relieved with nitro. He chronically takes Ranexa, amlodipine and lisinopril and saw his primary clamp carrier operator who increased his metoprolol to 125 mg daily and recommended cardiac catheterization.
-
NSTEMI:
-Severe MVD, no options for intervention percutaneously or surgically
-optimizing meds
- Increase imdur to 60mg qd today
--Change metoprolol to 50mg bid
-echo today
-cardiac rehab referral
Acute HF pEF:
-LVEDP 40 @ 112kg
-continue diuresis. Wt down 5lbs since admit. May need qd furosemide as outpt
-IV lasix
-wean O2 as able
-Add Jardiance 10mg qd- was on this in past with best A1c levels he has seen
-will eventually consider MRA but optimizing antianginals first- LV function is not impaired
DM:
-consult hospitalists to help with management
BPH with dysuria and obstructive symptoms:
-prostate biopsy 2 weeks ago per pt report Dr See at [facility].
Higginbotham was placed in laborer aquatic life to monitor UO in setting of acute pulmonary edema
-Higginbotham out
HTN:
-stable, low normal currently.
hyperlipidemia:
-LDL 33 on statin
DISPO
- Ambulate freely today and probable d/c tomorrow
Data
[facility] 07/14/23:
HEMODYNAMIC DATA
AO: 98/64
LV: 110/40
There is a suspected gradient across aortic valve approximately 10-15 mmHg. This will need to be verified by echo
LEFT VENTRICULOGRAPHY: Left ventricular wall motion is reasonably intact with visually estimated EF 50-55%
CORONARY ANGIOGRAPHY
Dominance: Right
Left Main: 20% mid stenosis
LAD: The LAD has mild proximal luminal disease and then severe diffuse multisegment disease involving the entire mid and distal LAD. There are focal areas of greater than 90% stenosis throughout the mid and distal LAD. The first diagonal branch is
subtotally occluded at its origin. This appears to be a very small diffusely diseased vessel. The larger second diagonal branch has 80% ostial, 80% proximal, and 80% mid stenoses.
Circumflex: The circumflex is occluded just distal to its origin. This appears to be a chronic total occlusion. There is faint bridging collateral filling of a diffusely diseased medium caliber OM1. I do not see collateral filling of more distal
obtuse marginal branches. Notably in 2017 his angiogram showed an occluded small OM 2 and a 95% stenosis in a small OM 3
RCA: Dominant vessel with severe calcification. There is 50% ostial/proximal stenosis, 50% mid stenosis, severely calcific 80% distal RCA stenosis proximal to the takeoff of the RPDA. The RPDA is proximally occluded (new since 2017). The RCA
terminates with a moderate-sized right posterolateral branch which has mild luminal disease.
CONCLUSIONS
1: ACS presentation with diffuse lateral ischemic changes on ECG
2: Acute pulmonary edema. LVEDP is 40 and the patient required 100% O2 via nonrebreather facemask to get O2 saturation greater than 92%. Furosemide 40 mg was given early during the catheterization procedure once the LVEDP was measured
3. Reasonably normal left ventricular wall motion with estimated LVEF 50-55%
4. Possible aortic stenosis with pullback gradient of 10-15 mmHg can you
5. Critical triple-vessel CAD as described-I do not see any appropriate target for interventional therapy. We will ask CT surgery to review the angiogram although I do not see acceptable bypass targets outside of the distal right posterolateral
branch and the distal aspect of second diagonal branch. Of note, he was seen by Dr. Grey of CT surgery at [facility] in 2017 and felt at that time not to be an acceptable candidate for CABG
6. At the conclusion of the catheterization procedure, he will be transferred to the CVICU. IC nitroglycerin was started at 60 mcg/min. Heparin will be resumed after the R band is off. We will continue metoprolol and use 25 mg p.o. every 6 hours
at this time. Furosemide 40 mg IV twice daily will be ordered. We will obtain serial cardiac isoenzymes and EKGs. His prognosis at present is guarded to poor and coronary revascularization is likely not an option for this man. I opted not to
place an IABP as he had blood pressure 110/80 with O2 sat 95% on 100% nonrebreather facemask and I felt having him upright would be greatly important to treat his pulmonary edema. With no clear option for surgical intervention and no option for
percutaneous intervention, it is unclear that a balloon pump would be of any help at this time.
Physical Exam
Vital Signs/Labs
Vital Signs
Temp Pulse Resp BP Pulse Ox
98.4 F 76 18 135/90 98
07/17/23 04:00 07/17/23 06:36 07/17/23 04:00 07/17/23 06:36 07/17/23 04:00
07/16/23 07/17/23 07/18/23
06:59 06:59 06:59
Actual Weight 242 lb 1.081 oz
07/16/23 06:22
07/17/23 04:54
PT 13.9 Sec (11.4-14.6) 07/14/23 15:55
INR 1.08 07/14/23 15:55
APTT 82.5 Sec (23.4-35.0) H 07/16/23 11:55
Magnesium 1.9 mg/dl (1.6-2.3) 07/14/23 15:41
Triglycerides 147 mg/dl (10-149) 07/15/23 04:13
LDL Cholesterol, Calc 33 mg/dl 07/15/23 04:13
VLDL Cholesterol, Calc 29 mg/dl (0-30) 07/15/23 04:13
HDL Cholesterol 45 mg/dl 07/15/23 04:13
LAB Results
07/14/23 07/14/23 07/14/23
15:41 17:20 23:15
Troponin I 0.565 H* 0.663 H* 1.410 H* D
07/15/23 07/15/23
04:14 11:09
Troponin I 1.530 H* 1.360 H*
Physical Exam
Constitutional: No acute distress and Comfortable
Cardiovascular: Rhythm & rate is regular and Systolic murmur present (1-2/6 aortic outflow murmur- aortic sclerosis vs stenosis)
Respiratory: Respiratory effort normal and Lungs clear to auscul.
GI: Non tender
Neuro/Psych: AO x 3 and Motor deficits absent
Data Reviewed
-
Date of Service: July 17, 2023
[2023-07-17 08:28] LABS: Glucose - Point of Care 197 mg/dl (70-99)
[2023-07-17] MEDS: NOVOLOG FLEXPEN-LOW RESISTANCE 1 UNITS SC ×3 (08:30→16:34)
[2023-07-17] MEDS: IMDUR (EXTENDED RELEASE) 60 MG PO (08:31)
[2023-07-17] MEDS: LOPRESSOR 50 MG PO ×2 (08:34→19:56)
[2023-07-17] MEDS: FLOMAX 0.400000000000000022 MG PO (08:34)
[2023-07-17] MEDS: ZESTRIL 20 MG PO (08:35)
[2023-07-17] MEDS: PLAVIX 75 MG PO (08:35)
[2023-07-17] MEDS: JARDIANCE 10 MG PO (08:35)
[2023-07-17] MEDS: LOW STRENGTH ASPIRIN 81 MG PO (08:36)
[2023-07-17] MEDS: RANEXA EXTENDED RELEASE 1000 MG PO ×2 (08:36→19:54)
[2023-07-17] MEDS: LASIX 40 MG IV ×2 (08:36→16:22)
--- NOTE | 2023-07-17 09:42 | PTCARENOTE ---
Assumed care of pt from night RN. Pt received awake and alert, Ox3. VSS, CM shows NSR 70's, POX 95% on RA. right wrist JEWEL GRINDER with normal CMS. He denies any pain or discomfort, but is asking for laxative. Dr. Coronel made aware.
[2023-07-17] MEDS: MIRALAX 17 GRAMS PO (09:57)
--- NOTE | 2023-07-17 10:25 | CM ---
Reviewed chart. Met with Mr. Stringer to review discharge plans. He states prior to admission he resides alone in a two story home without any steps to enter. He states he has a full flight of steps to get to bedroom/full bathroom. He states he
has a powder room on the first floor. He states prior to admission he was independent with ambulation and adls. He states he does not have any DME in the home. He states he has a prescription plan and [facility]. Medical work-up in
progress. The discharge plan is to return home when medically stable.
--- NOTE | 2023-07-17 10:25 | PTCARENOTE ---
Metamucil given as ordered for constipation.
[2023-07-17 12:47] LABS: Glucose - Point of Care 189 mg/dl (70-99)
[2023-07-17 16:35] LABS: Glucose - Point of Care 173 mg/dl (70-99)
[2023-07-17] MEDS: CRESTOR 40 MG PO (16:35)
[2023-07-17 21:59] LABS: Glucose - Point of Care 160 mg/dl (70-99)
[2023-07-17] MEDS: MELATONIN 5 MG PO (22:14)
--- NOTE | 2023-07-18 01:57 | PTCARENOTE ---
OOB in chair for most of the evening. Denied any complaints of pain or discomfort. Right radial cath site wnl, open to air.
[2023-07-18 04:23] VITALS: BP 118/66
[2023-07-18 05:34] LABS: Hematocrit 36.3 % (39.0-52.0); Hemoglobin 12.7 g/dL (13.0-18.0); Mean Corpuscular Hgb 29.7 pg (27.0-31.0); Mean Platelet Volume 8.9 fL (7.4-10.4); Platelet Count 195 10^3/uL (130-400); Red Blood Cell Count 4.27 10^6/uL (4.70-6.10); Red Cell Dist. Width 12.7 % (11.5-14.5)
[2023-07-18 05:57] LABS: Blood Urea Nitrogen 24 mg/dl (9-20); Calcium 9.9 mg/dl (8.4-10.2); Carbon Dioxide 25 mmol/L (22-30); Chloride 99 mmol/L (98-107); Estimated Creatinine Clearance 77 ml/min; Glucose 138 mg/dl (70-99); Potassium 4.1 mmol/L (3.5-5.1); Sodium 137 mmol/L (135-145); eGFR > 60.00
[2023-07-18 07:16] VITALS: BP 120/67
[2023-07-18 07:16] LABS: Glucose - Point of Care 131 mg/dl (70-99)
--- NOTE | 2023-07-18 07:34 | W.PN.UPDATE ---
Update Note
Progress Note Update
Home meds
Alfuzosin
amlodipine 10
ASA 81
Plavix 75 qd x 12 mo
Lisinopril 20
Metformin 1000 bid
metoprolol 50 bid
Imdur 60qam
SL NTG prn
Jardiance 10qd
Ranexa 1000 bid
miralax
F/U Dr Maya 2-3 wks
[2023-07-18] MEDS: NOVOLOG FLEXPEN-LOW RESISTANCE SC ×2 (08:39→12:33)
[2023-07-18] MEDS: IMDUR (EXTENDED RELEASE) 60 MG PO (09:10)
[2023-07-18] MEDS: FLOMAX 0.400000000000000022 MG PO (09:10)
[2023-07-18] MEDS: KCL 20 MEQ PO (09:10)
[2023-07-18] MEDS: RANEXA EXTENDED RELEASE 1000 MG PO (09:10)
[2023-07-18] MEDS: PLAVIX 75 MG PO (09:11)
[2023-07-18] MEDS: LOW STRENGTH ASPIRIN 81 MG PO (09:11)
[2023-07-18] MEDS: LOPRESSOR 50 MG PO (09:12)
[2023-07-18] MEDS: JARDIANCE 10 MG PO (09:12)
[2023-07-18] MEDS: LASIX 40 MG PO (09:12)
[2023-07-18] MEDS: ZESTRIL 20 MG PO (09:12)
[2023-07-18] MEDS: MIRALAX PO (09:13)
--- NOTE | 2023-07-18 10:37 | CM ---
Reviewed chart. Telephone call to [facility], ([phone]) to check on co-pay for Jardiance 10 mg po daily. If he gets the 90 dy supply he will be the the donut hole and his cost would be $383.60. The one month supply co-pay would be $120.31. Reviewed
co-pay with him. He is agreeable to the co-pay. Placed the one month free soupon in his red discharge folder. Medical work-up in progress. The discharg plan is to return home when medically stable.
[2023-07-18 11:20] VITALS: BP 114/69
--- NOTE | 2023-07-18 11:27 | W.DS.TRANS ---
Addendum entered and electronically signed by Braydon Babb MD 07/19/23 14:24:
Agree with below.
Original Note:
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
-
Discharge Instructions:
Discharge Diagnosis/Procedures NSTEMI
Acute HFpEF
Procedure: Cardiac catheterization 07/14/2023
Diet Low Cholesterol,2 Gram Sodium,Restrict fluids to
48 oz,Diabetic, Carb Controlled
Activity No strenuous activity
Additional Activity See attached instructions
Driving Restrictions No driving for 24 hours
Bathing Restrictions None
Blood Work BMP in one week. A prescription was provided to
you. Results to Dr. Maya.
Other Services Cardiac Rehab
Specialty Instructions Weigh Daily
Instructions:
Stand-Alone Forms: DC Instructions- Cath/EP Lab
Changes to Home Medications: Yes
Discharge Medications:
DC Medications w/original date entered in [employer]
alfuzosin 10 mg tablet,extended release 24 hr 10 mg PO DAILY Urinary Issue 07/14/23
amlodipine 10 mg tablet (Norvasc) 10 mg PO DAILY Blood Pressure 07/14/23
aspirin 81 mg tablet,delayed release 81 mg PO DAILY Blood Clot Prevention/Tx 07/14/23
lisinopril 20 mg tablet 20 mg PO DAILY Blood Pressure 07/14/23
metformin 500 mg tablet 1,000 mg PO BID Diabetes 07/14/23
ranolazine 500 mg tablet,extended release,12 hr 1,000 mg PO BID Heart Disease/Condition 07/14/23
semaglutide 1 mg/dose (4 mg/3 mL) subcutaneous pen injector (Ozempic) 1 mg SC SA Diabetes 07/14/23
acetaminophen 325 mg tablet 650 mg (2 x 325 mg) PO Q4HPRN PRN mild-mod pain #30 tabs 07/18/23
clopidogrel 75 mg tablet 75 mg PO DAILY #90 tabs 07/18/23
empagliflozin 10 mg tablet (Jardiance) 10 mg PO DAILY #30 tabs 07/18/23
furosemide 40 mg tablet 40 mg PO DAILY #30 tabs 07/18/23
isosorbide mononitrate 30 mg tablet,extended release 24 hr 60 mg (2 x 30 mg) PO DAILY #30 tabs 07/18/23
metoprolol tartrate 50 mg tablet 50 mg PO BID #60 tabs 07/18/23
nitroglycerin 0.4 mg sublingual tablet 0.4 mg sublingual [id number] PRN chest pain #25 tabs 07/18/23
polyethylene glycol 3350 17 gram oral powder packet (HealthyLax) 17 g PO DAILY PRN Constipation #30 ea 07/18/23
potassium chloride 20 mEq tablet,extended release(part/cryst) 20 meq PO DAILY #30 tabs 07/18/23
rosuvastatin 40 mg tablet 40 mg PO QPM #30 tabs 07/18/23
Home Medication Changes
Medications stopped:
Metoprolol succinate 125 mg daily
Rosuvastatin 20 mg daily
Rybelsus 7 mg twice daily
New medications:
Clopidogrel, furosemide, isosorbide mononitrate, Jardiance, metoprolol tartrate, MiraLAX, potassium chloride, rosuvastatin 40 mg
Pending Results: No
--- NOTE | 2023-07-18 11:27 | W.PN.CD ---
Addendum entered and electronically signed by Braydon Babb MD 07/18/23 11:57:
Patient seen and examined in collaboration with SACK LIFTER; agree with below.
-67-year-old male with severe multivessel coronary artery disease; unamenable to intervention.
-Continue with medical therapy.
-Outpatient follow-up with his primary Employment Services Director; stable for discharge to home.
Original Note:
Today's Communication / Plan
-
Discharge planning
Outpatient follow-up with either Dr. Maya or Dr. Jade
Impression / Plan
-
67-year-old gentleman with a past medical history of diffuse CAD without any prior stenting or bypass, hypertension, hyperlipidemia and diabetes on semaglutide who presents for evaluation of chest pain. Patient reports, over the last month or 2, he
has had increasing need for nitroglycerin. He reports that at first it was with exertion but in the last several days it has been occurred with less and less exertion and 07/14/23 occurred at rest while at work. It is mid substernal to right-sided
pressure it does not radiate. It is relieved with nitro. He chronically takes Ranexa, amlodipine and lisinopril and saw his primary wildlife refuge manager who increased his metoprolol to 125 mg daily and recommended cardiac catheterization.
NSTEMI:
-Severe MVD, no options for intervention percutaneously or surgically -- medical management
-Ambulating the halls without chest pain or shortness of breath on current therapy
-Cardiac rehab
Acute HF pEF:
-LVEDP 40 @ 112kg
-Furosemide 40 mg daily with potassium supplementation, BMP in 1 week
-Add Jardiance 10mg qd- was on this in past with best A1c levels he has seen
-Will eventually consider MRA but optimizing antianginals first- LV function is not impaired
DM, to be managed by his PCP
BPH with dysuria and obstructive symptoms:
-prostate biopsy 2 weeks ago per pt report Dr See at [facility].
-Higginbotham was placed in computer laboratory technician to monitor UO in setting of acute pulmonary edema, Anahy is now out
HTN, stable on current medical therapy
Hyperlipidemia, LDL 33 on statin
Data:
[facility] 07/14/23:
HEMODYNAMIC DATA
AO: 98/64
LV: 110/40
There is a suspected gradient across aortic valve approximately 10-15 mmHg. This will need to be verified by echo
LEFT VENTRICULOGRAPHY: Left ventricular wall motion is reasonably intact with visually estimated EF 50-55%
CORONARY ANGIOGRAPHY
Dominance: Right
Left Main: 20% mid stenosis
LAD: The LAD has mild proximal luminal disease and then severe diffuse multisegment disease involving the entire mid and distal LAD. There are focal areas of greater than 90% stenosis throughout the mid and distal LAD. The first diagonal branch is
subtotally occluded at its origin. This appears to be a very small diffusely diseased vessel. The larger second diagonal branch has 80% ostial, 80% proximal, and 80% mid stenoses.
Circumflex: The circumflex is occluded just distal to its origin. This appears to be a chronic total occlusion. There is faint bridging collateral filling of a diffusely diseased medium caliber OM1. I do not see collateral filling of more distal
obtuse marginal branches. Notably in 2017 his angiogram showed an occluded small OM 2 and a 95% stenosis in a small OM 3
RCA: Dominant vessel with severe calcification. There is 50% ostial/proximal stenosis, 50% mid stenosis, severely calcific 80% distal RCA stenosis proximal to the takeoff of the RPDA. The RPDA is proximally occluded (new since 2017). The RCA
terminates with a moderate-sized right posterolateral branch which has mild luminal disease.
CONCLUSIONS
1: ACS presentation with diffuse lateral ischemic changes on ECG
2: Acute pulmonary edema. LVEDP is 40 and the patient required 100% O2 via nonrebreather facemask to get O2 saturation greater than 92%. Furosemide 40 mg was given early during the catheterization procedure once the LVEDP was measured
3. Reasonably normal left ventricular wall motion with estimated LVEF 50-55%
4. Possible aortic stenosis with pullback gradient of 10-15 mmHg can you
5. Critical triple-vessel CAD as described-I do not see any appropriate target for interventional therapy. We will ask CT surgery to review the angiogram although I do not see acceptable bypass targets outside of the distal right posterolateral
branch and the distal aspect of second diagonal branch. Of note, he was seen by Dr. Grey of CT surgery at [facility] in 2017 and felt at that time not to be an acceptable candidate for CABG
6. At the conclusion of the catheterization procedure, he will be transferred to the CVICU. IC nitroglycerin was started at 60 mcg/min. Heparin will be resumed after the R band is off. We will continue metoprolol and use 25 mg p.o. every 6 hours
at this time. Furosemide 40 mg IV twice daily will be ordered. We will obtain serial cardiac isoenzymes and EKGs. His prognosis at present is guarded to poor and coronary revascularization is likely not an option for this man. I opted not to
place an IABP as he had blood pressure 110/80 with O2 sat 95% on 100% nonrebreather facemask and I felt having him upright would be greatly important to treat his pulmonary edema. With no clear option for surgical intervention and no option for
percutaneous intervention, it is unclear that a balloon pump would be of any help at this time.
Physical Exam
Vital Signs/Labs
Vital Signs
Temp Pulse Resp BP Pulse Ox
98.3 F 64 18 118/66 97
07/18/23 11:18 07/18/23 11:18 07/18/23 11:18 07/18/23 04:23 07/18/23 11:18
07/17/23 07/18/23 07/19/23
06:59 06:59 06:59
Actual Weight 109.8 kg
07/18/23 04:32
07/18/23 04:32
PT 13.9 Sec (11.4-14.6) 07/14/23 15:55
INR 1.08 07/14/23 15:55
APTT 82.5 Sec (23.4-35.0) H 07/16/23 11:55
Magnesium 1.9 mg/dl (1.6-2.3) 07/14/23 15:41
Triglycerides 147 mg/dl (10-149) 07/15/23 04:13
LDL Cholesterol, Calc 33 mg/dl 07/15/23 04:13
VLDL Cholesterol, Calc 29 mg/dl (0-30) 07/15/23 04:13
HDL Cholesterol 45 mg/dl 07/15/23 04:13
LAB Results
07/15/23
11:09
Troponin I 1.360 H*
Physical Exam
Constitutional: No acute distress and Comfortable
EENT: Anicteric and Moist mucous membranes
Cardiovascular: Rhythm & rate is regular and Pedal edema is absent
Respiratory: Respiratory effort normal and Lungs clear to auscul.
GI: Soft, Distention absent, Flat and Non tender
Neuro/Psych: AO x 3
Other: Skin (Warm and dry) and Cardiac Device Site (No hematoma/bruit)
Data Reviewed
-
Date of Service: July 18, 2023
Labs: Labs Reviewed by me
[2023-07-18 12:33] LABS: Glucose - Point of Care 190 mg/dl (70-99)
== END 2023-07-18 14:24 | disposition home or self-care (01) | DRG 280 ==
LOC: IVU 16:47
PROVIDERS: Nurse Practitioner; Nurse Practitioner Adult Health; Physician Assistant Medical; ADMITTING PHYSICIAN Internal Medicine Cardiovascular Disease; CONSULT PHYSICIAN Thoracic Surgery (Cardiothoracic Vascular Surgery); EMERGENCY PHYSICIAN Emergency Medicine
PROC: B2151ZZ Fluoroscopy of Left Heart using Low Osmolar Contrast (ICD-10-PCS; 2023-07-14)
PROC: B2111ZZ Fluoroscopy of Multiple Coronary Arteries using Low Osmolar Contrast (ICD-10-PCS; 2023-07-14)
PROC: 4A023N7 Measurement of Cardiac Sampling and Pressure, Left Heart, Percutaneous Approach (ICD-10-PCS; 2023-07-14)
DX: I21.4 Non-ST elevation (NSTEMI) myocardial infarction (principal); I50.31 Acute diastolic (congestive) heart failure; I25.10 Atherosclerotic heart disease of native coronary artery without angina pectoris; E78.00 Pure hypercholesterolemia, unspecified; E11.9 Type 2 diabetes mellitus without complications; I11.0 Hypertensive heart disease with heart failure; E66.01 Morbid (severe) obesity due to excess calories; N40.1 Benign prostatic hyperplasia with lower urinary tract symptoms; R30.0 Dysuria; R29.6 Repeated falls; S06.0XAS Concussion with loss of consciousness status unknown, sequela; W19.XXXS Unspecified fall, sequela; Z68.31 Body mass index [BMI] 31.0-31.9, adult; Z79.82 Long term (current) use of aspirin; Z79.84 Long term (current) use of oral hypoglycemic drugs; Z79.899 Other long term (current) drug therapy; Z82.49 Family history of ischemic heart disease and other diseases of the circulatory system; Z87.891 Personal history of nicotine dependence
CPT/HCPCS: 71045; 80048; 80053; 80061; 81003; 81015; 82962; 83036; 83735; 84484; 85027; 85610; 85730; 93005; 93306; 93458; 96365; 96375; 99291; C1894; Q9967

== ENCOUNTER 2023-10-12 14:52 | Outpatient (RCR) | payer OTHER, SELFPAY ==
[2023-10-12 13:12] LABS: Glucose - Point of Care 215 mg/dl (70-99)
== END 2023-10-12 23:59 | disposition home or self-care (01) ==
LOC: CRHB 14:52
PROVIDERS: ATTENDING PHYSICIAN Internal Medicine Cardiovascular Disease; FAMILY PHYSICIAN Internal Medicine
DX: I25.10 Atherosclerotic heart disease of native coronary artery without angina pectoris (principal); I25.2 Old myocardial infarction
CPT/HCPCS: 82962; G0422; G0423

== ENCOUNTER 2023-11-09 10:39 | Outpatient (RCR) | payer OTHER, SELFPAY ==
[2023-10-18 11:55] LABS: Glucose - Point of Care 218 mg/dl (70-99)
[2023-10-18 12:46] LABS: Glucose - Point of Care 187 mg/dl (70-99)
[2023-10-24 10:34] LABS: Glucose - Point of Care 180 mg/dl (70-99)
[2023-10-24 11:38] LABS: Glucose - Point of Care 182 mg/dl (70-99)
[2023-10-26 10:26] LABS: Glucose - Point of Care 169 mg/dl (70-99)
[2023-10-26 10:59] LABS: Glucose - Point of Care 160 mg/dl (70-99)
[2023-10-31 10:49] LABS: Glucose - Point of Care 186 mg/dl (70-99)
[2023-10-31 11:49] LABS: Glucose - Point of Care 178 mg/dl (70-99)
[2023-11-02 10:18] LABS: Glucose - Point of Care 151 mg/dl (70-99)
[2023-11-02 11:08] LABS: Glucose - Point of Care 142 mg/dl (70-99)
[2023-11-07 10:46] LABS: Glucose - Point of Care 189 mg/dl (70-99)
[2023-11-07 11:14] LABS: Glucose - Point of Care 197 mg/dl (70-99)
[2023-11-09 10:26] LABS: Glucose - Point of Care 246 mg/dl (70-99)
[2023-11-09 11:04] LABS: Glucose - Point of Care 224 mg/dl (70-99)
== END 2023-11-09 23:59 | disposition home or self-care (01) ==
LOC: CRHB 10:39
PROVIDERS: ATTENDING PHYSICIAN Internal Medicine Cardiovascular Disease; FAMILY PHYSICIAN Internal Medicine
DX: I25.10 Atherosclerotic heart disease of native coronary artery without angina pectoris (principal); I25.2 Old myocardial infarction
CPT/HCPCS: 82962; G0422; G0423